=== PATIENT | female | born 2000 | race Caucasian/White ===

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

== ENCOUNTER 2023-01-28 03:11 | Emergency (ER) | payer BC ==
[2023-01-28 03:19] VITALS: O2SAT 98
[2023-01-28] MEDS ORDERED: ZOFRAN ODT 4 MG PO ONE (03:23)
--- NOTE | 2023-01-28 03:25 | ERPHSYRPT ---
- History of Present Illness Time Seen by Provider: 01/28/23 03:24 Source: patient (2 days) Physician History: Patient is a 22-year-old female presents to our ED for evaluation of cough congestion sore throat x2 days. Patient vomited 4 times today. No abdominal pain. No headache. Last bowel movement today. Symptoms are mild to moderate in intensity. No specific worsening improving factors. Patient is otherwise healthy. She voices no other complaints or concerns at this time. Portions of this note were created with voice recognition technology. There may be grammatical, spelling, punctuation or sound alike errors Timing/Duration: day(s) Associated Symptoms: nausea, vomiting, other (Body ache) Allergies/Adverse Reactions: azithromycin [From Zithromax] Allergy (Intermediate, Verified 01/28/23 03:26) Hives Home Medications: Escitalopram Oxalate 20 mg PO DAILY 01/28/23 [History] norgestimate-ethinyl estradioL [Norg-Ee 0.18-0.215-0.25/0.025] 1 tab PO DAILY 01/28/23 [History] Hx Tetanus, Diphtheria Vaccination/Date Given: Yes Hx Influenza Vaccination/Date Given: Yes Hx Pneumococcal Vaccination/Date Given: No - Review of Systems Constitutional: No Symptoms, No Fever, No Chills Eyes: No Symptoms Ears, Nose, & Throat: No Symptoms Respiratory: No Symptoms, No Cough, No Dyspnea Cardiac: No Symptoms, No Chest Pain, No Edema, No Syncope Abdominal/Gastrointestinal: No Symptoms, No Abdominal Pain, No Nausea, No Vomiting, No Diarrhea Genitourinary Symptoms: No Symptoms, No Dysuria Musculoskeletal: No Symptoms, No Back Pain, No Neck Pain Skin: No Symptoms, No Rash Neurological: No Symptoms, No Dizziness, No Focal Weakness, No Sensory Changes Psychological: No Symptoms Endocrine: No Symptoms Hematologic/Lymphatic: No Symptoms Immunological/Allergic: No Symptoms All Other Systems: Reviewed and Negative - Past Medical History Pertinent Past Medical History: No Psycho-Social History: Anxiety, Attention Deficit Disorder - Past Surgical History Past Surgical History: No - Social History Smoking Status: Never smoker Exposure to second hand smoke: No Drug Use: none Patient Lives Alone: No - Nursing Vital Signs Nursing Vital Signs: Initial Vital Signs Temperature 97.9 F 01/28/23 03:18 Pulse Rate 102 H 01/28/23 03:18 Respiratory Rate 17 01/28/23 03:18 Blood Pressure 129/94 01/28/23 03:18 O2 Sat by Pulse Oximetry 98 01/28/23 03:18 Pain Scale Pain Intensity 2 - Physical Exam General Appearance: no apparent distress, alert Eye Exam: PERRL/EOMI, eyes nml inspection Ears, Nose, Throat Exam: normal ENT inspection, TMs normal, moist mucous membranes, pharyngeal erythema Neck Exam: normal inspection, non-tender, supple, full range of motion Respiratory Exam: normal breath sounds, lungs clear, airway intact, No respiratory distress Cardiovascular Exam: regular rate/rhythm, normal heart sounds, normal peripheral pulses Gastrointestinal/Abdomen Exam: soft, normal bowel sounds, No tenderness, No mass Back Exam: normal inspection, normal range of motion, No CVA tenderness, No vertebral tenderness Extremity Exam: normal inspection, normal range of motion, pelvis stable Neurologic Exam: alert, oriented x 3, cooperative, normal mood/affect, nml cerebellar function, nml station & gait, sensation nml, No motor deficits Skin Exam: normal color, warm, dry, No rash Lymphatic Exam: No adenopathy SpO2 Interpretation: normal SpO2: 98 O2 Delivery: Room Air - Course Nursing assessment & vital signs reviewed: Yes Ordered Tests: Active Orders 24 hr Category Date Time Status CULTURE,URINE Stat Lab 01/28/23 03:34 Received HCG QUALITATIVE, URINE Stat Lab 01/28/23 03:35 Completed UA W/RFX UR CULTURE Stat Lab 01/28/23 03:34 Completed Medication Summary Discontinued Medications Generic Name Dose Route Start Last Admin Trade Name Johnnie PRN Reason Stop Dose Admin Ondansetron HCl 4 mg 01/28/23 03:23 01/28/23 03:26 Zofran 4 Mg/Udtablet Orally Disintegrating PO 01/28/23 03:24 4 mg STAT ONE Administration Ondansetron HCl Confirm 01/28/23 03:26 Zofran 4 Mg/Udtablet Orally Disintegrating Administered 01/28/23 03:27 Dose 4 mg .ROUTE .STK-MED ONE Lab/Rad Data: Laboratory Results 01/28/23 01/28/23 01/28/23 Range/Units 03:35 03:35 03:35 Urine Color (Yellow) Urine Appearance (Clear) Urine pH (4.6-8.0) Ur Specific Manning (1.005-1.030) Urine Protein (Negative) Urine Glucose (UA) (Negative) mg/dL Urine Ketones (Negative) Urine Blood (Negative) Urine Nitrite (Negative) Urine Bilirubin (Negative) Urine Urobilinogen (0.2) mg/dL Ur Leukocyte Esterase (Negative) U Hyaline Cast (Auto) (0-2) /LPF Urine Microscopic RBC (0-5) /HPF Urine Microscopic WBC (0-5) /HPF Ur Epithelial Cells (None Seen) /HPF Urine Bacteria (None Seen) /HPF Urine Culture Reflexed (NO) Urine HCG, Qual NEGATIVE (NEGATIVE) Influenza Type A Ag NEGATIVE (NEGATIVE) Influenza Type B Ag NEGATIVE (NEGATIVE) RSV (PCR) NEGATIVE (NEGATIVE) SARS-CoV-2 (PCR) NEGATIVE (NEGATIVE) Group A Strep Antibody NOT DETECTED (NEGATIVE) 01/28/23 Range/Units 03:34 Urine Color Yellow (Yellow) Urine Appearance Clear (Clear) Urine pH 5.5 (4.6-8.0) Ur Specific Manning >=1.030 A (1.005-1.030) Urine Protein 30 (Negative) Urine Glucose (UA) Negative (Negative) mg/dL Urine Ketones 80 A (Negative) Urine Blood Small A (Negative) Urine Nitrite Negative (Negative) Urine Bilirubin Negative (Negative) Urine Urobilinogen 1.0 A (0.2) mg/dL Ur Leukocyte Esterase Negative (Negative) U Hyaline Cast (Auto) 3-5 A (0-2) /LPF Urine Microscopic RBC 3-5 (0-5) /HPF Urine Microscopic WBC 3-5 (0-5) /HPF Ur Epithelial Cells Few (None Seen) /HPF Urine Bacteria Few A (None Seen) /HPF Urine Culture Reflexed YES (NO) Urine HCG, Qual (NEGATIVE) Influenza Type A Ag (NEGATIVE) Influenza Type B Ag (NEGATIVE) RSV (PCR) (NEGATIVE) SARS-CoV-2 (PCR) (NEGATIVE) Group A Strep Antibody (NEGATIVE) - Progress Progress: improved Progress Note: Patient reassessed. She is well. Patient tolerated p.o. UA negative. Viral panel including COVID RSV influenza negative. Rapid strep negative. Patient resting comfortably. Will discharge home. A prescription of Zofran will be forwarded to patient's pharmacy. Patient agrees to follow-up with her primary care doctor within 48 hours for reevaluation. Portions of this note were created with voice recognition technology. There may be grammatical, spelling, punctuation or sound alike errors Patient is a 22-year-old female presents to our ED for evaluation of 2-day history of sore throat congestion body aches cough. Patient vomited 4 times today. Complexity of problem addressed is low acute uncomplicated., No critical care time Complexity of data reviewed and analyzed is moderate. Test ordered. Test reviewed and analyzed including urinalysis. Urinalysis negative for urinary tract infection. Risk of complication and or risk morbidity/mortality of patient management is moderate. A prescription for Zofran was forwarded to patient's pharmacy. Patient agrees to follow-up with her primary care doctor within 48 hours for reevaluation. Portions of this note were created with voice recognition technology. There may be grammatical, spelling, punctuation or sound alike errors 01/28/23 04:37 Counseled pt/family regarding: lab results, diagnosis, need for follow-up - Departure Departure Disposition: Home Clinical Impression: Nausea & vomiting, Sore throat Condition: Stable Critical Care Time: No Referrals: FORTINO ROOT NP [Primary Care Provider] - Follow up/PCP as directed Additional Instructions: Discharge/Care Plan ADAN WALLER ROS MULLEN was seen on 01/28/23 in the Emergency Room. The patient was counseled regarding Diagnosis,Lab results, Imaging studies, need for follow up and when to return to the Emergency Room. Prescriptions given: Discharge Note I have spoken with the patient and/or caregivers. I have explained the patient's condition, diagnosis and treatment plan based on the information available to me at this time. I have answered the patient's and/or caregiver's questions and addressed any concerns. The patient and/or caregivers have as good understanding of the patient's diagnosis, condition and treatment plan as can be expected at this point. The vital signs have been stable. The patient's condition is stable and appropriate for discharge from the emergency department. The patient will pursue further outpatient evaluation with the primary care physician or other designated or consulting physician as outlined in the discharge instructions. The patient and/or caregivers are agreeable to this plan of care and follow-up instructions have been explained in detail. The patient and/or caregivers have received these instruction. The patient/and or caregivers are aware that any significant change in condition or worsening of symptoms should prompt an immediate return to this or the closest emergency department or call 911. Prescriptions: Ondansetron ODT 4 MG [Zofran Odt 4 mg] 4 mg PO Q6H PRN PRN #10 tablet PRN Reason: Vomiting
[2023-01-28] MEDS ORDERED: ZOFRAN ODT 4 MG ONE (03:26)
[2023-01-28 03:45] LABS: HCG URINE TEST NEGATIVE (NEGATIVE)
[2023-01-28 03:50] LABS: ADD URINE CULTURE? YES (NO); Appearance Clear (Clear); Bacteria Few /HPF (None Seen); Bilirubin Negative (Negative); Blood Small (Negative); Epithelial Cells Few /HPF (None Seen); Glucose, Urine Negative (Negative); Ketones 80 (Negative); Leukocyte Esterase Negative (Negative); Nitrite Negative (Negative); Ph 5.5 (4.6-8.0); Protein,Urine Dip 30 (Negative); Specific Gravity >=1.030 (1.005-1.030)
[2023-01-28 04:15] LABS: INFLUENZA A NEGATIVE (NEGATIVE); INFLUENZA B NEGATIVE (NEGATIVE); RESPIRATORY SYNCTIAL VIRUS NEGATIVE (NEGATIVE); SARS-CoV-2 Xpert Express NEGATIVE (NEGATIVE)
[2023-01-28 04:28] VITALS: BP 131/83; PULSE 92
== END 2023-01-28 04:56 | disposition home or self-care (01) ==
LOC: ED 03:11
DX: J02.9 Acute pharyngitis, unspecified (principal); R11.2 Nausea with vomiting, unspecified; R05.1 Acute cough; R09.81 Nasal congestion
CPT/HCPCS: 0241U; 81001; 81025; 87086; 87651; 99282; Q0162

== ENCOUNTER 2023-10-31 08:05 | Emergency (ER) | payer BC, MEDICAID ==
[2023-10-31 08:22] VITALS: RESP 16; TEMP 98.2
[2023-10-31] MEDS ORDERED: TYLENOL EXTRA STRENGTH 500 MG ONE (08:25)
--- NOTE | 2023-10-31 08:27 | ERPHSYRPT ---
- History of Present Illness Time Seen by Provider: 10/31/23 08:07 Source: patient Exam Limitations: no limitations Patient Subjective Stated Complaint: PT HERE FOR RUNNY NOSE,COUGH, LOW GRADE FEVER, LOOSE STOOLS,MALAISE, SHE STATES SHE IS EATING AND DRINKING WELL Triage Nursing Assessment: PT ALERT, WALKED IN, RESP EASY, STUFFY NOSE, SKIN W/D/P. NO EDEMA NOTED, NO COUGH Physician History: 23-year-old female presented in the ER with complains of URI symptoms started almost 5 days ago initially with nasal congestion with some nonproductive cough now having cough productive of clear sputum. No difficulty breathing. Occasionally feels as if she is wheezing. Patient does not smoke. Denies any chest pain or palpitations. No abdominal pain. Did have diarrhea yesterday. No vomiting. Reports having aches and pains/malaise. Denies any known sick contact, subjective feeling of fever but no chills. Allergies/Adverse Reactions: azithromycin [From Zithromax] Allergy (Intermediate, Verified 10/31/23 08:14) Hives Home Medications: norgestimate-ethinyl estradioL [Norg-Ee 0.18-0.215-0.25/0.025] 1 tab PO DAILY 01/28/23 [History] Buspirone HCl 5 mg [Buspar 5 mg] 5 mg PO DAILY 10/31/23 [History] Hx Tetanus, Diphtheria Vaccination/Date Given: No Hx Influenza Vaccination/Date Given: No Hx Pneumococcal Vaccination/Date Given: No Immunizations Up to Date: Yes Travel Risk - International Travel Have you traveled outside of the country in past 3 weeks: No - Coronavirus Screening Are you exhibiting any of the following symptoms?: Yes Symptoms: Cough: New Onset, Vomiting/Diarrhea Close contact with a COVID-19 positive Pt in past 14-21 Days: No - Vaccine Status Have you recieved a Covid-19 vaccination: No - Review of Systems Constitutional: Fever, Malaise Eyes: No Symptoms Ears, Nose, & Throat: Nose Congestion, Throat Pain Respiratory: Cough Cardiac: No Symptoms Abdominal/Gastrointestinal: Diarrhea Genitourinary Symptoms: No Symptoms Musculoskeletal: Myalgias Skin: No Symptoms Neurological: No Symptoms Hematologic/Lymphatic: No Symptoms Immunological/Allergic: No Symptoms - Past Medical History Pertinent Past Medical History: No Neurological History: No Pertinent History ENT History: No Pertinent History Cardiac History: No Pertinent History Respiratory History: No Pertinent History Endocrine Medical History: No Pertinent History Musculoskeletal History: No Pertinent History GI Medical History: No Pertinent History History: No Pertinent History Psycho-Social History: Anxiety, Attention Deficit Disorder Female Reproductive Disorders: Other Other Medical History: cysts on ovaries - Past Surgical History Past Surgical History: No - Social History Smoking Status: Never smoker Exposure to second hand smoke: No Drug Use: none Patient Lives Alone: No - Female History Hx Last Menstrual Period: SEP Hx Now: No - Nursing Vital Signs Nursing Vital Signs: Initial Vital Signs Temperature 98.2 F 10/31/23 08:21 Pulse Rate 110 H 10/31/23 08:21 Respiratory Rate 16 10/31/23 08:21 Blood Pressure 149/98 10/31/23 08:21 O2 Sat by Pulse Oximetry 99 10/31/23 08:21 Pain Scale Pain Intensity 0 - Physical Exam General Appearance: no apparent distress, alert Eye Exam: PERRL/EOMI Ears, Nose, Throat Exam: moist mucous membranes, pharyngeal erythema Neck Exam: normal inspection, non-tender, supple, full range of motion, No meningismus Respiratory Exam: normal breath sounds, lungs clear Cardiovascular Exam: normal heart sounds, normal peripheral pulses, tachycardia Gastrointestinal/Abdomen Exam: soft, normal bowel sounds, No tenderness Extremity Exam: normal inspection, normal range of motion Neurologic Exam: alert, oriented x 3, cooperative Skin Exam: normal color SpO2 Interpretation: normal SpO2: 99 O2 Delivery: Room Air - Progress Progress: improved Air Movement: good Blood Culture(s) Obtained: No Antibiotics given: No Counseled pt/family regarding: lab results, diagnosis, need for follow-up Medical Desision Making - Diagnostic Testing Diagnostic test were ordered, analyzed, and reviewed by me: Yes - Departure Departure Disposition: Home Clinical Impression: URI with cough and congestion Condition: Stable Critical Care Time: No Referrals: FORTINO ROOT NP [Primary Care Provider] - Follow up with PCP 2 days Instructions: Cough, Adult (DC), Viral Upper Respiratory Infection, Adult (DC) Additional Instructions: Take Tylenol/ibuprofen as needed. Drink plenty of fluids to keep yourself well- hydrated. Take [id number] cough medications. Follow-up with primary care for reevaluation. Return to ER for worsening cough or if having difficulty breathing, persistent high-grade fever, intractable vomiting/diarrhea etc.
[2023-10-31] MEDS: TYLENOL EXTRA STRENGTH 500 MG PO STA (08:35)
[2023-10-31 09:00] LABS: Group A Strep NOT DETECTED (NEGATIVE)
[2023-10-31 09:13] LABS: INFLUENZA A NEGATIVE (NEGATIVE); INFLUENZA B NEGATIVE (NEGATIVE); RESPIRATORY SYNCTIAL VIRUS NEGATIVE (NEGATIVE); SARS-CoV-2 Xpert Express NEGATIVE (NEGATIVE)
[2023-10-31 09:46] VITALS: BP 124/102; PULSE 82; O2SAT 99
== END 2023-10-31 09:42 | disposition home or self-care (01) ==
LOC: ED 08:05
DX: J06.9 Acute upper respiratory infection, unspecified (principal); R05.1 Acute cough; R09.81 Nasal congestion; Z79.899 Other long term (current) drug therapy; Z28.310 Unvaccinated for COVID-19
CPT/HCPCS: 0241U; 87651; 99283; A9270-GY

== ENCOUNTER 2023-11-04 20:05 | Emergency (ER) | payer MEDICAID ==
[2023-11-04 20:20] VITALS: TEMP 98
[2023-11-04] MEDS ORDERED: MAALOX ES 30 ML UNIT DOSE ONE (22:13)
[2023-11-04] MEDS ORDERED: XYLOCAINE VISCOUS 2% 15 ML CUP ONE (22:13)
[2023-11-04 22:16] LABS: Absolute Neutrophil Ct (ANC) 6.55 x10^3/uL (1.4-6.9); BASOPHIL % 0.6 % (0.0-0.4); Basophil (Absolute #) 0.06 x10^3/uL (0-0.4); Eosinophil % 2.9 % (0.00-5.0); Eosinophil (Absolute #) 0.31 x10^3/uL (0-0.5); Hematocrit 39.7 % (35-47); Hemoglobin 12.4 g/dL (12.0-16.0); IMMATURE GRAN # 0.03 x10^3u/L (0.00-0.03); IMMATURE GRAN % 0.3 % (0.00-0.4); Lymphocyte (Absolute #) 3.06 x10^3/uL (1.0-4.6); Lymphocytes % 28.8 % (24.0-44.0); Mean Cell Volume 84.6 fL (78-100); Mean Corpuscular Hemoglobin 26.4 pg (26-32); Mean Corpuscular Hgb Concent. 31.2 g/dL (32-36); Mean Platelet Volume 9.5 fL (7.5-11.0); Monocyte (Absolute #) 0.61 x10^3/uL (0.0-1.3); Monocytes % 5.7 % (0.0-12.0); Neutrophil % 61.7 % (36.0-66.0); Platelet Count 432 x10^3/uL (150-450); Red Blood Count 4.69 x10^6/uL (4.1-5.4); Red Cell Distribution Width 13.6 % (11.5-14.0); White Blood Count 10.6 x10^3/uL (4.0-10.5)
[2023-11-04 22:19] LABS: HCG URINE TEST NEGATIVE (NEGATIVE)
[2023-11-04] MEDS: GI COCKTAIL 45 ML (Maalox/Lidocaine) PO ONE (22:20)
[2023-11-04 22:23] LABS: Appearance Clear (Clear); Bacteria Rare /HPF (None Seen); Bilirubin Negative (Negative); Blood Negative (Negative); Epithelial Cells Few /HPF (None Seen); Glucose, Urine Negative (Negative); Hyaline Casts NONE SEEN /LPF (0-2); Ketones Negative (Negative); Leukocyte Esterase Small (Negative); Nitrite Negative (Negative); Ph 5.5 (4.6-8.0); Protein,Urine Dip Negative (Negative); RBC 0-2 /HPF (0-5); Specific Gravity <=1.005 (1.005-1.030); Urobilinogen 0.2 mg/dL (0.2)
[2023-11-04 22:25] LABS: ADD URINE CULTURE? YES (NO)
[2023-11-04 22:30] LABS: ALBUMIN 4.3 g/dL (3.5-5.0); ANION GAP 10.7 MEQ/L (5-15); BILIRUBIN,TOTAL 0.3 mg/dL (0.2-1.3); Calcium 9.1 mg/dL (8.4-10.2); Creatinine 1 0.68 mg/dL (0.52-1.04); Potassium 3.9 mmol/L (3.5-5.1); Total Protein 7.4 g/dL (6.3-8.2)
[2023-11-04 22:40] LABS: Amphetamine,Urine NEGATIVE (NEGATIVE); Barbiturate,Urine NEGATIVE (NEGATIVE); Benzodiazepine,Urine NEGATIVE (NEGATIVE); Cocaine,Urine NEGATIVE (NEGATIVE); Methadone,Urine NEGATIVE (NEGATIVE); Opiate,Urine NEGATIVE (NEGATIVE); PCP,Urine NEGATIVE (NEGATIVE); THC,Urine NEGATIVE (NEGATIVE)
--- NOTE | 2023-11-04 22:46 | ERPHSYRPT ---
- History of Present Illness Time Seen by Provider: 11/04/23 20:20 Historian: patient Exam Limitations: no limitations Patient Subjective Stated Complaint: pt states while eating she began having midsternal chest pain. describes as sharp and pressure. Triage Nursing Assessment: pt alert and oriented, answers questions approp. pt ambualtes into room with steady gait noted. respiraitons nonlabored with lungs cta bilat. heart rate 88 sinus rhythm on monitor. skin warm and dry. Physician History: Patient is a 23-year-old female presents to our emergency department for evaluation of substernal chest pain that began at dinnertime. Patient states symptoms worsened after eating. Patient was mildly nauseous but this has since improved. Patient declined nausea medication. No vomiting no diaphoresis. No trauma no fever. Symptoms are mild in intensity. No specific worsening improving factors. Patient denies a history of the same. She voices no other complaints or concerns at this time. Portions of this note were created with voice recognition technology. There may be grammatical, spelling, punctuation or sound alike errors Timing/Duration: today Activities at Onset: other (Eating) Quality: aching Location: substernal Chest Pain Radiation: no radiation Severity of Pain-Max: moderate Severity of Pain-Current: mild Modifying Factors: Improves With: nothing Associated Symptoms: nausea Prior Chest Pain/Cardiac Workup: no prior chest pain Nitro Today/Relief: no nitro taken today Aspirin Treatment Today: no aspirin today Allergies/Adverse Reactions: azithromycin [From Zithromax] Allergy (Intermediate, Verified 11/04/23 20:24) Hives Home Medications: norgestimate-ethinyl estradioL [Norg-Ee 0.18-0.215-0.25/0.025] 1 tab PO DAILY 01/28/23 [History] Buspirone HCl 5 mg [Buspar 5 mg] 5 mg PO HS 10/31/23 [History] Hx Tetanus, Diphtheria Vaccination/Date Given: No Hx Influenza Vaccination/Date Given: No Hx Pneumococcal Vaccination/Date Given: No Immunizations Up to Date: No Travel Risk - International Travel Have you traveled outside of the country in past 3 weeks: No - Coronavirus Screening Are you exhibiting any of the following symptoms?: No Close contact with a COVID-19 positive Pt in past 14-21 Days: No - Vaccine Status Have you recieved a Covid-19 vaccination: No - Review of Systems Constitutional: No Symptoms, No Fever, No Chills Eyes: No Symptoms Ears, Nose, & Throat: No Symptoms Respiratory: No Symptoms, No Cough, No Dyspnea Cardiac: No Symptoms, No Chest Pain, No Edema, No Syncope Abdominal/Gastrointestinal: No Symptoms, No Abdominal Pain, No Nausea, No Vomiting, No Diarrhea Genitourinary Symptoms: No Symptoms, No Dysuria Musculoskeletal: No Symptoms, No Back Pain, No Neck Pain Skin: No Symptoms, No Rash Neurological: No Symptoms, No Dizziness, No Focal Weakness, No Sensory Changes Psychological: No Symptoms Endocrine: No Symptoms Hematologic/Lymphatic: No Symptoms Immunological/Allergic: No Symptoms All Other Systems: Reviewed and Negative - Past Medical History Pertinent Past Medical History: No Neurological History: No Pertinent History ENT History: No Pertinent History Cardiac History: No Pertinent History Respiratory History: No Pertinent History Endocrine Medical History: No Pertinent History Musculoskeletal History: No Pertinent History GI Medical History: No Pertinent History History: No Pertinent History Psycho-Social History: Anxiety, Attention Deficit Disorder Female Reproductive Disorders: Other Other Medical History: cysts on ovaries - Past Surgical History Past Surgical History: No - Social History Smoking Status: Never smoker Exposure to second hand smoke: No Drug Use: none Patient Lives Alone: No - Female History Hx Last Menstrual Period: end sep Hx Now: No - Nursing Vital Signs Nursing Vital Signs: Initial Vital Signs Temperature 98.0 F 11/04/23 20:07 Pulse Rate 88 11/04/23 20:07 Respiratory Rate 16 11/04/23 20:07 Blood Pressure 141/77 11/04/23 20:07 O2 Sat by Pulse Oximetry 99 11/04/23 20:07 Pain Scale Pain Intensity 5 - Physical Exam General Appearance: no apparent distress, alert Eye Exam: PERRL/EOMI, eyes nml inspection Ears, Nose, Throat Exam: normal ENT inspection, moist mucous membranes Neck Exam: normal inspection, non-tender, supple, full range of motion Respiratory Exam: normal breath sounds, lungs clear, airway intact, No respiratory distress Cardiovascular Exam: regular rate/rhythm, normal heart sounds, normal peripheral pulses Gastrointestinal/Abdomen Exam: soft, No tenderness, No mass Back Exam: normal inspection, No CVA tenderness, No vertebral tenderness Extremity Exam: normal inspection, normal range of motion Neurologic Exam: alert, oriented x 3, cooperative, normal mood/affect, sensation nml, No motor deficits Skin Exam: normal color, warm, dry Lymphatic Exam: No adenopathy SpO2 Interpretation: normal SpO2: 99 O2 Delivery: Room Air - Course Nursing assessment & vital signs reviewed: Yes EKG Interpreted by Me: RATE ([id number]), Sinus Rhythm, NORMAL AXIS, NORMAL INTERVALS Ordered Tests: Active Orders 24 hr Category Date Time Status 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 STAT Care 11/04/23 21:50 Active EKG-ER Only STAT Care 11/04/23 21:49 Active CHEST 1 VIEW (PORTABLE) Stat Exams 11/04/23 22:52 Taken CBC W DIFF Stat Lab 11/04/23 22:08 Completed CMP Stat Lab 11/04/23 22:08 Completed CULTURE,URINE Stat Lab 11/04/23 22:01 Received D-DIMER QUANTITATIVE Stat Lab 11/04/23 22:08 Completed HCG QUALITATIVE, URINE Stat Lab 11/04/23 21:50 Completed TROPONIN Q4H Lab 11/04/23 22:08 Completed TROPONIN Q4H Lab 11/05/23 00:40 Completed TROPONIN Q4H Lab 11/05/23 06:00 Ordered UA W/RFX UR CULTURE Stat Lab 11/04/23 22:01 Completed Urine Triage Profile Stat Lab 11/04/23 21:50 Completed Medication Summary Discontinued Medications Generic Name Dose Route Start Last Admin Trade Name Ramsesq PRN Reason Stop Dose Admin Al Hydrox/Mg Hydrox/Simethicone Confirm 11/04/23 22:13 Mag Hydrox/Al Hydrox/Simeth 30 Ml Udcup Administered 11/04/23 22:14 Dose 30 ml .ROUTE .STK-MED ONE Lidocaine HCl Confirm 11/04/23 22:13 Lidocaine Hcl 2% Viscous 15 Ml Udcup Administered 11/04/23 22:14 Dose 15 ml .ROUTE .STK-MED ONE Magnesium Hydroxide 45 ml 11/04/23 21:51 11/04/23 22:20 Mag Hydrx/Alum Hyd/Simeth/Lido 45 Ml Bottle PO 11/04/23 21:52 45 ml STAT ONE Administration Nitrofurantoin Macrocrystals 100 mg 11/05/23 00:20 11/05/23 00:38 Nitrofurantoin Macro 100 Mg Capsule PO 11/05/23 00:21 100 mg STAT ONE Administration Nitrofurantoin Macrocrystals Confirm 11/05/23 00:34 Nitrofurantoin Macro 100 Mg Capsule Administered 11/05/23 00:35 Dose 100 mg .ROUTE .[facility]-MED ONE Lab/Rad Data: Laboratory Result Diagrams 11/04/23 22:08 11/04/23 22:08 Laboratory Results 11/05/23 11/04/23 11/04/23 Range/Units 00:40 22:08 22:08 WBC (4.0-10.5) x10^3/uL RBC (4.1-5.4) x10^6/uL Hgb (12.0-16.0) g/dL Hct (35-47) % MCV (78-100) fL MCH (26-32) pg MCHC (32-36) g/dL RDW (11.5-14.0) % Plt Count (150-450) x10^3/uL MPV (7.5-11.0) fL Gran % (36.0-66.0) % Immature Gran % (Auto) (0.00-0.4) % Nucleat RBC Rel Count (0.00-0.1) % Eos # (Auto) (0-0.5) x10^3/uL Immature Gran # (Auto) (0.00-0.03) x10^3u/L Absolute Lymphs (auto) (1.0-4.6) x10^3/uL Absolute Monos (auto) (0.0-1.3) x10^3/uL Absolute Nucleated RBC (0.00-0.01) x10^3u/L Lymphocytes % (24.0-44.0) % Monocytes % (0.0-12.0) % Eosinophils % (0.00-5.0) % Basophils % (0.0-0.4) % Absolute Granulocytes (1.4-6.9) x10^3/uL Basophils # (0-0.4) x10^3/uL D-Dimer 0.36 (0.0-0.50) mg/L Sodium (137-145) mmol/L Potassium (3.5-5.1) mmol/L Chloride (98-107) mmol/L Carbon Dioxide (22-30) mmol/L Anion Gap (5-15) MEQ/L BUN (7-17) mg/dL Creatinine (0.52-1.04) mg/dL Estimated GFR ML/MIN Glucose (74-106) mg/dL Calcium (8.4-10.2) mg/dL Total Bilirubin (0.2-1.3) mg/dL AST (14-36) U/L ALT (0-35) U/L Alkaline Phosphatase (38-126) U/L Troponin I < 0.012 < 0.012 (0.000-0.034) ng/mL Serum Total Protein (6.3-8.2) g/dL Albumin (3.5-5.0) g/dL Urine Color (Yellow) Urine Appearance (Clear) Urine pH (4.6-8.0) Ur Specific [place] (1.005-1.030) Urine Protein (Negative) Urine Glucose (UA) (Negative) mg/dL Urine Ketones (Negative) Urine Blood (Negative) Urine Nitrite (Negative) Urine Bilirubin (Negative) Urine Urobilinogen (0.2) mg/dL Ur Leukocyte Esterase (Negative) U Hyaline Cast (Auto) (0-2) /LPF Urine Microscopic RBC (0-5) /HPF Urine Microscopic WBC (0-5) /HPF Ur Epithelial Cells (None Seen) /HPF Urine Bacteria (None Seen) /HPF Urine Culture Reflexed (NO) Urine HCG, Qual (NEGATIVE) Urine Opiates Level (NEGATIVE) Ur Methadone (NEGATIVE) Urine Barbiturates (NEGATIVE) Ur Phencyclidine (PCP) (NEGATIVE) Urine Amphetamine (NEGATIVE) U Benzodiazepine Level (NEGATIVE) Urine Cocaine (NEGATIVE) Urine Marijuana (THC) (NEGATIVE) 11/04/23 11/04/23 11/04/23 Range/Units 22:08 22:08 22:01 WBC 10.6 H (4.0-10.5) x10^3/uL RBC 4.69 (4.1-5.4) x10^6/uL Hgb 12.4 (12.0-16.0) g/dL Hct 39.7 (35-47) % MCV 84.6 (78-100) fL MCH 26.4 (26-32) pg MCHC 31.2 L (32-36) g/dL RDW 13.6 (11.5-14.0) % Plt Count 432 (150-450) x10^3/uL MPV 9.5 (7.5-11.0) fL Gran % 61.7 (36.0-66.0) % Immature Gran % (Auto) 0.3 (0.00-0.4) % Nucleat RBC Rel Count 0.0 (0.00-0.1) % Eos # (Auto) 0.31 (0-0.5) x10^3/uL Immature Gran # (Auto) 0.03 (0.00-0.03) x10^3u/L Absolute Lymphs (auto) 3.06 (1.0-4.6) x10^3/uL Absolute Monos (auto) 0.61 (0.0-1.3) x10^3/uL Absolute Nucleated RBC 0.00 (0.00-0.01) x10^3u/L Lymphocytes % 28.8 (24.0-44.0) % Monocytes % 5.7 (0.0-12.0) % Eosinophils % 2.9 (0.00-5.0) % Basophils % 0.6 (0.0-0.4) % Absolute Granulocytes 6.55 (1.4-6.9) x10^3/uL Basophils # 0.06 (0-0.4) x10^3/uL D-Dimer (0.0-0.50) mg/L Sodium 133 L (137-145) mmol/L Potassium 3.9 (3.5-5.1) mmol/L Chloride 106 (98-107) mmol/L Carbon Dioxide 21 L (22-30) mmol/L Anion Gap 10.7 (5-15) MEQ/L BUN 8 (7-17) mg/dL Creatinine 0.68 (0.52-1.04) mg/dL Estimated GFR 127.0 ML/MIN Glucose 97 (74-106) mg/dL Calcium 9.1 (8.4-10.2) mg/dL Total Bilirubin 0.30 (0.2-1.3) mg/dL AST 18 (14-36) U/L ALT 12 (0-35) U/L Alkaline Phosphatase 81 (38-126) U/L Troponin I (0.000-0.034) ng/mL Serum Total Protein 7.4 (6.3-8.2) g/dL Albumin 4.3 (3.5-5.0) g/dL Urine Color Yellow (Yellow) Urine Appearance Clear (Clear) Urine pH 5.5 (4.6-8.0) Ur Specific [place] <=1.005 (1.005-1.030) Urine Protein Negative (Negative) Urine Glucose (UA) Negative (Negative) mg/dL Urine Ketones Negative (Negative) Urine Blood Negative (Negative) Urine Nitrite Negative (Negative) Urine Bilirubin Negative (Negative) Urine Urobilinogen 0.2 (0.2) mg/dL Ur Leukocyte Esterase Small A (Negative) U Hyaline Cast (Auto) NONE SEEN (0-2) /LPF Urine Microscopic RBC 0-2 (0-5) /HPF Urine Microscopic WBC 11-20 A (0-5) /HPF Ur Epithelial Cells Few (None Seen) /HPF Urine Bacteria Rare A (None Seen) /HPF Urine Culture Reflexed YES (NO) Urine HCG, Qual (NEGATIVE) Urine Opiates Level (NEGATIVE) Ur Methadone (NEGATIVE) Urine Barbiturates (NEGATIVE) Ur Phencyclidine (PCP) (NEGATIVE) Urine Amphetamine (NEGATIVE) U Benzodiazepine Level (NEGATIVE) Urine Cocaine (NEGATIVE) Urine Marijuana (THC) (NEGATIVE) 11/04/23 11/04/23 Range/Units 21:50 21:50 WBC (4.0-10.5) x10^3/uL RBC (4.1-5.4) x10^6/uL Hgb (12.0-16.0) g/dL Hct (35-47) % MCV (78-100) fL MCH (26-32) pg MCHC (32-36) g/dL RDW (11.5-14.0) % Plt Count (150-450) x10^3/uL MPV (7.5-11.0) fL Gran % (36.0-66.0) % Immature Gran % (Auto) (0.00-0.4) % Nucleat RBC Rel Count (0.00-0.1) % Eos # (Auto) (0-0.5) x10^3/uL Immature Gran # (Auto) (0.00-0.03) x10^3u/L Absolute Lymphs (auto) (1.0-4.6) x10^3/uL Absolute Monos (auto) (0.0-1.3) x10^3/uL Absolute Nucleated RBC (0.00-0.01) x10^3u/L Lymphocytes % (24.0-44.0) % Monocytes % (0.0-12.0) % Eosinophils % (0.00-5.0) % Basophils % (0.0-0.4) % Absolute Granulocytes (1.4-6.9) x10^3/uL Basophils # (0-0.4) x10^3/uL D-Dimer (0.0-0.50) mg/L Sodium (137-145) mmol/L Potassium (3.5-5.1) mmol/L Chloride (98-107) mmol/L Carbon Dioxide (22-30) mmol/L Anion Gap (5-15) MEQ/L BUN (7-17) mg/dL Creatinine (0.52-1.04) mg/dL Estimated GFR ML/MIN Glucose (74-106) mg/dL Calcium (8.4-10.2) mg/dL Total Bilirubin (0.2-1.3) mg/dL AST (14-36) U/L ALT (0-35) U/L Alkaline Phosphatase (38-126) U/L Troponin I (0.000-0.034) ng/mL Serum Total Protein (6.3-8.2) g/dL Albumin (3.5-5.0) g/dL Urine Color (Yellow) Urine Appearance (Clear) Urine pH (4.6-8.0) Ur Specific [place] (1.005-1.030) Urine Protein (Negative) Urine Glucose (UA) (Negative) mg/dL Urine Ketones (Negative) Urine Blood (Negative) Urine Nitrite (Negative) Urine Bilirubin (Negative) Urine Urobilinogen (0.2) mg/dL Ur Leukocyte Esterase (Negative) U Hyaline Cast (Auto) (0-2) /LPF Urine Microscopic RBC (0-5) /HPF Urine Microscopic WBC (0-5) /HPF Ur Epithelial Cells (None Seen) /HPF Urine Bacteria (None Seen) /HPF Urine Culture Reflexed (NO) Urine HCG, Qual NEGATIVE (NEGATIVE) Urine Opiates Level NEGATIVE (NEGATIVE) Ur Methadone NEGATIVE (NEGATIVE) Urine Barbiturates NEGATIVE (NEGATIVE) Ur Phencyclidine (PCP) NEGATIVE (NEGATIVE) Urine Amphetamine NEGATIVE (NEGATIVE) U Benzodiazepine Level NEGATIVE (NEGATIVE) Urine Cocaine NEGATIVE (NEGATIVE) Urine Marijuana (THC) NEGATIVE (NEGATIVE) - Progress Progress: improved Air Movement: good Progress Note: Patient is a 23-year-old female presents to the emergency department for evaluation of chest pain after eating. Physical exam nonremarkable. Laboratory workup essentially nonremarkable. D-dimer negative. Troponin negative x 2. EKG normal sinus rhythm. Chest x-ray negative for acute pathology. Patient reassessed she is asymptomatic. No indication for further workup at this time will discharge home. Patient agrees to follow-up with her primary care doctor within 48 hours for evaluation Portions of this note were created with voice recognition technology. There may be grammatical, spelling, punctuation or sound alike errors Complexity problem addressed is moderate acute complicated No critical care time Complex of data reviewed and analyzed is moderate. Test ordered test reviewed. Results analyzed and correlated clinically with history and physical exam. Risk of complication and or risk of morbidity/mortality of patient management is moderate Vital stable. Time spent to discharge patient is approximately 15 minutes. Plan of care established for shared decision making. No social determinants of health present impede follow-up. Portions of this note were created with voice recognition technology. There may be grammatical, spelling, punctuation or sound alike errors 11/05/23 01:15 Blood Culture(s) Obtained: No Antibiotics given: No Counseled pt/family regarding: lab results, diagnosis, need for follow-up, rad results (No acute findings) - Departure Departure Disposition: Home Clinical Impression: Chest pain Condition: Stable Critical Care Time: No Referrals: FORTINO ROOT NP [Primary Care Provider] - Follow up/PCP as directed Additional Instructions: Discharge/Care Plan ADAN WALLER ROS MULLEN was seen on 11/05/23 in the Emergency Room. The patient was counseled regarding Diagnosis,Lab results, Imaging studies, need for follow up and when to return to the Emergency Room. Prescriptions given: Discharge Note I have spoken with the patient and/or caregivers. I have explained the patient's condition, diagnosis and treatment plan based on the information available to me at this time. I have answered the patient's and/or caregiver's questions and addressed any concerns. The patient and/or caregivers have as good understanding of the patient's diagnosis, condition and treatment plan as can be expected at this point. The vital signs have been stable. The patient's condition is stable and appropriate for discharge from the emergency department. The patient will pursue further outpatient evaluation with the primary care physician or other designated or consulting physician as outlined in the discharge instructions. The patient and/or caregivers are agreeable to this plan of care and follow-up instructions have been explained in detail. The patient and/or caregivers have received these instruction. The patient/and or caregivers are aware that any significant change in condition or worsening of symptoms should prompt an immediate return to this or the closest emergency department or call 911. Forms: Work/School Release Form
[2023-11-05] MEDS ORDERED: Macrobid 100MG Capsule ONE (00:34)
[2023-11-05] MEDS: Macrobid 100MG Capsule PO ONE (00:38)
[2023-11-05 01:12] VITALS: O2SAT 99
[2023-11-05 01:51] VITALS: BP 113/83; PULSE 74; RESP 16
--- NOTE | 2023-11-05 07:51 | XRAY ---
Indication: Chest pain. Comparison: June 19, 2006 Portable chest again demonstrates normal heart and lungs. Bony thorax intact with minimal dextroscoliosis.
== END 2023-11-05 01:44 | disposition home or self-care (01) ==
LOC: ED 20:05
DX: R07.9 Chest pain, unspecified (principal); Z79.899 Other long term (current) drug therapy; Z28.310 Unvaccinated for COVID-19
CPT/HCPCS: 36415; 71045; 80053; 80307; 81001; 81025; 84484; 85025; 85379; 87086; 93005; 93041; 99284; A9270-GY

== ENCOUNTER 2023-11-19 09:15 | Emergency (ER) | payer MEDICAID ==
[2023-11-19 09:25] VITALS: TEMP 98
[2023-11-19] MEDS ORDERED: Carafate 1 GM PO ONE (09:37)
[2023-11-19] MEDS ORDERED: Pepcid 20 MG VIAL IV ONE (09:37)
[2023-11-19] MEDS ORDERED: BABY ASPIRIN 81 MG CHEW ONE (09:37)
[2023-11-19] MEDS: Carafate 1 GM PO ONE (09:38)
[2023-11-19] MEDS: Pepcid 20 MG VIAL IV ONE (09:38)
[2023-11-19] MEDS: BABY ASPIRIN 81 MG CHEW PO ONE (09:38)
[2023-11-19 09:48] LABS: BASOPHIL % 0.4 % (0.0-0.4); Basophil (Absolute #) 0.05 x10^3/uL (0-0.4); Eosinophil % 7.9 % (0.00-5.0); Eosinophil (Absolute #) 0.98 x10^3/uL (0-0.5); Hematocrit 39.1 % (35-47); Hemoglobin 12.6 g/dL (12.0-16.0); IMMATURE GRAN # 0.04 x10^3u/L (0.00-0.03); IMMATURE GRAN % 0.3 % (0.00-0.4); Lymphocyte (Absolute #) 3.76 x10^3/uL (1.0-4.6); Lymphocytes % 30.4 % (24.0-44.0); Mean Cell Volume 83.2 fL (78-100); Mean Corpuscular Hemoglobin 26.8 pg (26-32); Mean Corpuscular Hgb Concent. 32.2 g/dL (32-36); Mean Platelet Volume 9.2 fL (7.5-11.0); Monocyte (Absolute #) 1.03 x10^3/uL (0.0-1.3); Monocytes % 8.3 % (0.0-12.0); Neutrophil % 52.7 % (36.0-66.0); Platelet Count 417 x10^3/uL (150-450); Red Cell Distribution Width 13.4 % (11.5-14.0); White Blood Count 12.4 x10^3/uL (4.0-10.5)
[2023-11-19 09:50] LABS: HCG URINE TEST NEGATIVE (NEGATIVE)
[2023-11-19 10:04] LABS: ANION GAP 12.6 MEQ/L (5-15); BILIRUBIN,TOTAL 0.2 mg/dL (0.2-1.3); Calcium 8.7 mg/dL (8.4-10.2); Creatinine 1 0.59 mg/dL (0.52-1.04); EST GLOMERULAR FILTRATION RATE 131.4 ML/MIN; Potassium 4.1 mmol/L (3.5-5.1); Total Protein 6.9 g/dL (6.3-8.2)
--- NOTE | 2023-11-19 10:17 | XRAY ---
Indication: Chest pain. Comparison: November 04, 2023 Portable chest again demonstrates normal heart, lungs, and bony thorax.
[2023-11-19] MEDS: TORAdol 30 mg Injection IV ONE (10:55)
[2023-11-19] MEDS ORDERED: TORAdol 30 mg Injection ONE (10:55)
--- NOTE | 2023-11-19 10:55 | ERPHSYRPT ---
- History of Present Illness Time Seen by Provider: 11/19/23 09:24 Historian: patient Exam Limitations: no limitations Patient Subjective Stated Complaint: C/O chest pain for approx 2 weeks. States pain is worse today. Indicates she went to the ER for chest pain 2 weeks ago and followed-up with primary care provider, Fortino Dorman, after that ER visit. Triage Nursing Assessment: Patient is alert and oriented. Calm. Showing no s/s of pain or distress. NO SOB. No cough. ARANA WNL. No edema. Patient smiling and texting on her phone at times during assessment. Physician History: 23-year-old female presented in the ER which complains of substernal chest pain since yesterday continuous, moderate intensity, nonradiating without any significant aggravating or relieving factors. Denies associated palpitations or shortness of breath. Patient reports having off-and-on chest pain for the last couple of weeks and has been evaluated to the ER before as well with negative workup. She was started on anti-inflammatory outpatient but she still have pains off and on there. Denies any fever or chills but has minimal nonpro ductive cough. Denies any known sick contact. Nitro Today/Relief: no nitro taken today Aspirin Treatment Today: no aspirin today Allergies/Adverse Reactions: azithromycin [From Zithromax] Allergy (Intermediate, Verified 11/19/23 09:19) Hives Home Medications: norgestimate-ethinyl estradioL [Norg-Ee 0.18-0.215-0.25/0.025] 1 tab PO DAILY 01/28/23 [History] Buspirone HCl 5 mg [Buspar 5 mg] 5 mg PO HS 10/31/23 [History] Naproxen 500 mg [Naprosyn 500 MG] 1 tab PO BID 11/19/23 [History] Hx Tetanus, Diphtheria Vaccination/Date Given: Yes Hx Influenza Vaccination/Date Given: No Hx Pneumococcal Vaccination/Date Given: No Immunizations Up to Date: Yes Travel Risk - International Travel Have you traveled outside of the country in past 3 weeks: No - Coronavirus Screening Are you exhibiting any of the following symptoms?: No Close contact with a COVID-19 positive Pt in past 14-21 Days: No - Vaccine Status Have you recieved a Covid-19 vaccination: No - Review of Systems Constitutional: No Symptoms Eyes: No Symptoms Ears, Nose, & Throat: No Symptoms Respiratory: Cough Cardiac: Chest Pain Abdominal/Gastrointestinal: No Symptoms Genitourinary Symptoms: No Symptoms Musculoskeletal: No Symptoms Skin: No Symptoms Neurological: No Symptoms Psychological: Anxiety Endocrine: No Symptoms Hematologic/Lymphatic: No Symptoms Immunological/Allergic: No Symptoms - Past Medical History Pertinent Past Medical History: Yes Neurological History: No Pertinent History ENT History: No Pertinent History Cardiac History: No Pertinent History Respiratory History: No Pertinent History Endocrine Medical History: No Pertinent History Musculoskeletal History: No Pertinent History GI Medical History: No Pertinent History History: No Pertinent History Psycho-Social History: Anxiety, Attention Deficit Disorder Female Reproductive Disorders: Other Other Medical History: cysts on ovaries - Past Surgical History Past Surgical History: No - Social History Smoking Status: Never smoker Exposure to second hand smoke: No Drug Use: none Patient Lives Alone: No - Female History Hx Last Menstrual Period: Ended on 11/16/23 Hx Now: (unkn) - Nursing Vital Signs Nursing Vital Signs: Initial Vital Signs Temperature 98 F 11/19/23 09:20 Pulse Rate 73 11/19/23 09:20 Respiratory Rate 18 11/19/23 09:20 Blood Pressure 136/94 11/19/23 09:20 O2 Sat by Pulse Oximetry 100 11/19/23 09:20 Pain Scale Pain Intensity 3 - Physical Exam General Appearance: no apparent distress, alert, anxiety Eye Exam: PERRL/EOMI, eyes nml inspection Ears, Nose, Throat Exam: normal ENT inspection, TMs normal, pharynx normal, moist mucous membranes Neck Exam: normal inspection, non-tender, supple, full range of motion Respiratory Exam: normal breath sounds, lungs clear Cardiovascular Exam: regular rate/rhythm, normal heart sounds Gastrointestinal/Abdomen Exam: soft, normal bowel sounds, No tenderness Back Exam: normal inspection, normal range of motion Extremity Exam: normal inspection, normal range of motion Neurologic Exam: alert, oriented x 3, cooperative Skin Exam: normal color SpO2 Interpretation: normal SpO2: 99 O2 Delivery: Room Air - Course EKG Interpreted by Me: RATE ([id number]), Sinus Rhythm, NORMAL AXIS, NORMAL INTERVALS, NORMAL QRS Ordered Tests: Active Orders 24 hr Category Date Time Status Glass Beveler STAT Care 11/19/23 09:29 Completed EKG-ER Only STAT Care 11/19/23 09:28 Completed IV Insertion STAT Care 11/19/23 09:28 Completed CHEST 1 VIEW (PORTABLE) Stat Exams 11/19/23 09:28 Completed CBC W DIFF Stat Lab 11/19/23 09:40 Completed CMP Stat Lab 11/19/23 09:40 Completed D-DIMER QUANTITATIVE Stat Lab 11/19/23 09:40 Completed HCG QUALITATIVE, URINE Stat Lab 11/19/23 09:30 Completed LIPASE Stat Lab 11/19/23 09:40 Completed TROPONIN Q4H Lab 11/19/23 09:40 Completed Medication Summary Discontinued Medications Generic Name Dose Route Start Last Admin Trade Name Johnnie PRN Reason Stop Dose Admin Aspirin 324 mg 11/19/23 09:28 11/19/23 09:38 Aspirin 81 Mg Tab.Chew PO 11/19/23 09:29 324 mg STAT ONE Administration Aspirin Confirm 11/19/23 09:37 Aspirin 81 Mg Tab.Chew Administered 11/19/23 09:38 Dose 324 mg .ROUTE .STK-MED ONE Famotidine 20 mg 11/19/23 09:28 11/19/23 09:38 Famotidine 20 Mg/1 Vial IV 11/19/23 09:29 20 mg STAT ONE Administration Famotidine Confirm 11/19/23 09:37 Famotidine 20 Mg/1 Vial Administered 11/19/23 09:38 Dose 20 mg IV .STK-MED ONE Ketorolac Tromethamine 30 mg 11/19/23 10:49 11/19/23 10:55 Ketorolac Tromethamine 30 Mg/Ml Inj IV 11/19/23 10:50 30 mg STAT ONE Administration Ketorolac Tromethamine Confirm 11/19/23 10:55 Ketorolac Tromethamine 30 Mg/Ml Inj Administered 11/19/23 10:56 Dose 30 mg .ROUTE .STK-MED ONE Sucralfate 1 g 11/19/23 09:28 11/19/23 09:38 Sucralfate 1 G Tablet PO 11/19/23 09:29 1 g STAT ONE Administration Sucralfate Confirm 11/19/23 09:37 Sucralfate 1 G Tablet Administered 11/19/23 09:38 Dose 1 g PO .STK-MED ONE Lab/Rad Data: Laboratory Result Diagrams 11/19/23 09:40 11/19/23 09:40 Laboratory Results 11/19/23 11/19/23 11/19/23 Range/Units 09:40 09:40 09:40 WBC (4.0-10.5) x10^3/uL RBC (4.1-5.4) x10^6/uL Hgb (12.0-16.0) g/dL Hct (35-47) % MCV (78-100) fL MCH (26-32) pg MCHC (32-36) g/dL RDW (11.5-14.0) % Plt Count (150-450) x10^3/uL MPV (7.5-11.0) fL Gran % (36.0-66.0) % Immature Gran % (Auto) (0.00-0.4) % Nucleat RBC Rel Count (0.00-0.1) % Eos # (Auto) (0-0.5) x10^3/uL Immature Gran # (Auto) (0.00-0.03) x10^3u/L Absolute Lymphs (auto) (1.0-4.6) x10^3/uL Absolute Monos (auto) (0.0-1.3) x10^3/uL Absolute Nucleated RBC (0.00-0.01) x10^3u/L Lymphocytes % (24.0-44.0) % Monocytes % (0.0-12.0) % Eosinophils % (0.00-5.0) % Basophils % (0.0-0.4) % Absolute Granulocytes (1.4-6.9) x10^3/uL Basophils # (0-0.4) x10^3/uL D-Dimer < 0.19 (0.0-0.50) mg/L Sodium 137 (135-145) mmol/L Potassium 4.1 (3.5-5.1) mmol/L Chloride 104 (98-107) mmol/L Carbon Dioxide 24 (22-30) mmol/L Anion Gap 12.6 (5-15) MEQ/L BUN 15 (7-17) mg/dL Creatinine 0.59 (0.52-1.04) mg/dL Estimated GFR 131.4 ML/MIN Glucose 93 (74-106) mg/dL Calcium 8.7 (8.4-10.2) mg/dL Total Bilirubin 0.20 (0.2-1.3) mg/dL AST 20 (14-36) U/L ALT 14 (0-35) U/L Alkaline Phosphatase 80 (38-126) U/L Troponin I < 0.012 (0.000-0.034) ng/mL Serum Total Protein 6.9 (6.3-8.2) g/dL Albumin 4.0 (3.5-5.0) g/dL Lipase 71 (23-300) U/L Urine HCG, Qual (NEGATIVE) 11/19/23 11/19/23 Range/Units 09:40 09:30 WBC 12.4 H (4.0-10.5) x10^3/uL RBC 4.70 (4.1-5.4) x10^6/uL Hgb 12.6 (12.0-16.0) g/dL Hct 39.1 (35-47) % MCV 83.2 (78-100) fL MCH 26.8 (26-32) pg MCHC 32.2 (32-36) g/dL RDW 13.4 (11.5-14.0) % Plt Count 417 (150-450) x10^3/uL MPV 9.2 (7.5-11.0) fL Gran % 52.7 (36.0-66.0) % Immature Gran % (Auto) 0.3 (0.00-0.4) % Nucleat RBC Rel Count 0.0 (0.00-0.1) % Eos # (Auto) 0.98 H (0-0.5) x10^3/uL Immature Gran # (Auto) 0.04 H (0.00-0.03) x10^3u/L Absolute Lymphs (auto) 3.76 (1.0-4.6) x10^3/uL Absolute Monos (auto) 1.03 (0.0-1.3) x10^3/uL Absolute Nucleated RBC 0.00 (0.00-0.01) x10^3u/L Lymphocytes % 30.4 (24.0-44.0) % Monocytes % 8.3 (0.0-12.0) % Eosinophils % 7.9 H (0.00-5.0) % Basophils % 0.4 (0.0-0.4) % Absolute Granulocytes 6.50 (1.4-6.9) x10^3/uL Basophils # 0.05 (0-0.4) x10^3/uL D-Dimer (0.0-0.50) mg/L Sodium (135-145) mmol/L Potassium (3.5-5.1) mmol/L Chloride (98-107) mmol/L Carbon Dioxide (22-30) mmol/L Anion Gap (5-15) MEQ/L BUN (7-17) mg/dL Creatinine (0.52-1.04) mg/dL Estimated GFR ML/MIN Glucose (74-106) mg/dL Calcium (8.4-10.2) mg/dL Total Bilirubin (0.2-1.3) mg/dL AST (14-36) U/L ALT (0-35) U/L Alkaline Phosphatase (38-126) U/L Troponin I (0.000-0.034) ng/mL Serum Total Protein (6.3-8.2) g/dL Albumin (3.5-5.0) g/dL Lipase (23-300) U/L Urine HCG, Qual NEGATIVE (NEGATIVE) - Progress Progress: improved, re-examined Air Movement: good Progress Note: 11/19/23 11:52 23-year-old is evaluated for intermittent chest pain for the last couple of weeks and continuous since yesterday. Patient is not in any distress. EKG is normal sinus rhythm with no acute ischemic changes. Negative troponins and D-dimer. Chest x-ray negative. Normal white count, unremarkable chemistries. I have given her Carafate and Pepcid with mild improvement. Also given Toradol for pain. I believe patient has possible GERD with esophagitis and I will start her on Protonix. Part of her symptoms are secondary to anxiety as well. She is low heart score, do not think she needs second troponin based on her history and can be discharged with outpatient follow-up. Discussed signs symptoms of worsening needing return to ER which she seems understanding. Stable for discharge. Blood Culture(s) Obtained: No Antibiotics given: No Counseled pt/family regarding: lab results, diagnosis, need for follow-up, rad results Medical Desision Making - Diagnostic Testing Diagnostic test were ordered, analyzed, and reviewed by me: Yes Radiological Interpretation: Reviewed by me - Risk of complications The pt has a mod risk of morbidity or mortality based on: Need for prescription drug management - Departure Departure Disposition: Home Clinical Impression: Atypical chest pain Condition: Stable Critical Care Time: No Referrals: FORTINO DORMAN NP [Primary Care Provider] - Follow up with PCP 1 day Instructions: Acid Reflux and GERD in Adults (DC), Angina (DC) Additional Instructions: Follow-up with primary care for reevaluation. Take Tylenol as needed. Return to ER for intractable chest pain or if having difficulty breathing etc. Prescriptions: PANTOPRAZOLE 40 mg Tablet [Protonix 40MG Tablet] 40 mg PO QAM #30 tab
[2023-11-19 11:39] VITALS: BP 130/95; PULSE 72; RESP 16
[2023-11-19 22:17] VITALS: O2SAT 99
== END 2023-11-19 11:39 | disposition home or self-care (01) ==
LOC: ED 09:15
DX: R07.9 Chest pain, unspecified (principal); F41.9 Anxiety disorder, unspecified; Z79.899 Other long term (current) drug therapy; Z20.828 Contact with and (suspected) exposure to other viral communicable diseases
CPT/HCPCS: 36000; 36415; 71045; 80053; 81025; 83690; 84484; 85025; 85379; 93005; 93041; 96374; 96375; 99284; J1885; A9270-GY